=== PATIENT | male | born 1960 | race Caucasian/White ===

== ENCOUNTER 2022-11-15 10:35 | Inpatient (IN) ==
[2022-11-15] MEDS ORDERED: SODIUM CHLORIDE 0.9% 1,000 ML IV STA (11:07)
[2022-11-15 12:30] LABS: Bilirubin,Total 1.4 MG/DL (0.20-1.00); Calcium 9.5 MG/DL (8.5-10.1); Osmolality,Calculated 279.3 MOS/KG (273-304); Potassium 3.5 MMOL/L (3.5-5.1); Total Protein 7.9 G/DL (6.4-8.2)
[2022-11-15 12:37] LABS: Basophils % 0.6 % (0.0-0.8); Eosinophils # 0.2 10*3/uL (0.0-0.87); Eosinophils % 4.8 % (0.00-10.9); Hematocrit 37.4 VOL% (42.0-52.0); Hemoglobin 12.8 GM/DL (14.0-18.0); Immature Granulocytes % 0.2 %; Immature Granulocytes Absolute 0.01 #; Lymphocytes # 1.2 10*3/uL (1.4-4.0); Lymphocytes % 24.7 % (21.2-54.2); Mean Corpuscular HGB Conc 34.2 GM/DL (32-36); Mean Corpuscular Volume 98.2 FL (87-102); Mean Platelet Volume 10.4 FL (9.6-12.0); Monocytes # 0.5 10*3/uL (0.11-0.8); Monocytes % 10.8 % (1.7-12.7); Neutrophils % 58.9 % (38.7-73.9); Platelet Count 116 T/CUMM (130-400); Red Blood Count 3.81 MC/CUMM (3.8-5.5); Red Cell Distribution Width 13.2 % (9.3-17.3); White Blood Count 4.98 T/CUMM (4-12)
[2022-11-15 12:47] LABS: PT Patient Result 11.4 SECS (10.1-12.1)
[2022-11-15 13:58] LABS: Bilirubin,Urine Negative (Negative); Blood, Urine Negative (Negative); Glucose,Urine (UA) Negative (Negative); Ketones,Urine Negative (Negative); Nitrite,Urine Negative (Negative); Protein,Urine Negative (Negative); Urine Appearance Clear (Clear); Urine Color Yellow (Yellow); Urine Specific Gravity 1.015 (1.001-1.035)
[2022-11-15 14:01] LABS: Bacteria,Urine Occasional /HPF (Few); Mucus,Urine Occasional /LPF (Occasional); Squamous Epithelial Cell,Urine Occasional /HPF (0-10); Transitional Epi Cells,Urine Occasional /HPF (<1)
[2022-11-15 14:29] LABS: Barbiturates Screen,Urine Negative (Negative); Benzodiazepines Screen,Urine Negative (Negative); Cannabinoid Screen,Urine Negative (Negative); Opiate Screen,Urine Negative (Negative); Phencyclidine Screen,Urine Negative (Negative)
[2022-11-15] MEDS ORDERED: GLUCAGON 1 MG VIAL IM PRN (15:27)
[2022-11-15] MEDS ORDERED: hydrALAZINE 20 MG/1 ML VIAL IV PRN (15:27)
[2022-11-15] MEDS ORDERED: ONDANSETRON 4 MG/2 ML VIAL IV PRN (15:27)
[2022-11-15] MEDS ORDERED: DEXTROSE 10% 250 ML BAG IV PRN (15:34)
[2022-11-15] MEDS: LACTULOSE 20 GM/30 ML UDCUP PO SCH ×2 (16:10→21:35)
[2022-11-15] MEDS: LACTATED RINGERS 1,000 ML IV SCH (16:10)
[2022-11-15] MEDS: ENOXAPARIN 40 MG/0.4 ML SYRINGE SUBCUT SCH (16:11)
[2022-11-15] MEDS: INSULIN LISPRO 100 UNIT/ML SUBCUT SCH ×2 (17:20→20:42)
[2022-11-15] MEDS ORDERED: LACTULOSE 20 GM/30 ML UDCUP PO SCH (21:00)
[2022-11-16] MEDS ORDERED: HALOPERIDOL 5 MG/ML AMP IM ONE (01:42)
[2022-11-16] MEDS: LACTATED RINGERS 1,000 ML IV SCH ×2 (02:10→18:43)
[2022-11-16] MEDS: LACTULOSE 20 GM/30 ML UDCUP PO SCH ×4 (04:49→21:20)
[2022-11-16 06:16] LABS: Basophils # 0.1 10*3/uL (0.0-0.2); Eosinophils # 0.3 10*3/uL (0.0-0.87); Eosinophils % 5.4 % (0.00-10.9); Hematocrit 34.2 VOL% (42.0-52.0); Hemoglobin 11.7 GM/DL (14.0-18.0); Immature Granulocytes % 0.2 %; Immature Granulocytes Absolute 0.01 #; Lymphocytes # 1.5 10*3/uL (1.4-4.0); Lymphocytes % 29.3 % (21.2-54.2); Mean Corpuscular HGB Conc 34.2 GM/DL (32-36); Mean Corpuscular Volume 98.3 FL (87-102); Mean Platelet Volume 10.3 FL (9.6-12.0); Monocytes # 0.6 10*3/uL (0.11-0.8); Monocytes % 12.2 % (1.7-12.7); Neutrophils % 51.9 % (38.7-73.9); Platelet Count 111 T/CUMM (130-400); Red Blood Count 3.48 MC/CUMM (3.8-5.5); Red Cell Distribution Width 13.4 % (9.3-17.3); White Blood Count 4.98 T/CUMM (4-12)
[2022-11-16 06:50] LABS: Albumin 1.9 G/DL (3.4-5.0); Bilirubin,Total 1.3 MG/DL (0.20-1.00); Calcium 8.5 MG/DL (8.5-10.1); Osmolality,Calculated 284.7 MOS/KG (273-304); Potassium 2.9 MMOL/L (3.5-5.1); Total Protein 5.7 G/DL (6.4-8.2)
[2022-11-16] MEDS: INSULIN LISPRO 100 UNIT/ML SUBCUT SCH ×4 (07:27→21:20)
[2022-11-16 07:32] LABS: Hepatitis B Core IgM Quant 0.14 Index; Hepatitis B Surface Ag Quant < 0.10 Index; Hepatitis B Surface Ag Result Non-Reactive (NonReactive); Hepatitis C Virus Ab Quant > 11.00 Index; Hepatitis C Virus Ab Result Reactive (NonReactive)
[2022-11-16] MEDS ORDERED: POTASSIUM CHLORIDE 20 MEQ TABLET PO ONE (07:53)
[2022-11-16] MEDS ORDERED: ZIPRASIDONE 20 MG/1 ML VIAL IM ONE (08:17)
[2022-11-16] MEDS ORDERED: HALOPERIDOL 5 MG/ML AMP IM PRN (08:28)
[2022-11-16] MEDS ORDERED: POTASSIUM CHLORIDE 20 MEQ TABLET PO PRN (14:03)
[2022-11-16] MEDS ORDERED: MAGNESIUM SULF RIDER 2 GM/50 ML PREMIX IV PRN (14:03)
[2022-11-16] MEDS ORDERED: MAGNESIUM SULF RIDER 4 GM/100 ML PREMIX IV PRN (14:03)
[2022-11-16] MEDS: ENOXAPARIN 40 MG/0.4 ML SYRINGE SUBCUT SCH (16:16)
[2022-11-16] MEDS ORDERED: NICOTINE 21 MG/24 HR PATCH TRANSDERM PRN (21:55)
[2022-11-16] MEDS: ACETAMINOPHEN 325 MG TABLET PO PRN (23:05)
[2022-11-17] MEDS: LACTULOSE 20 GM/30 ML UDCUP PO SCH ×4 (03:10→21:00)
[2022-11-17] MEDS: LACTATED RINGERS 1,000 ML IV SCH (05:00)
[2022-11-17 06:28] LABS: Albumin 2.4 G/DL (3.4-5.0); Bilirubin,Total 0.9 MG/DL (0.20-1.00); Calcium 8.3 MG/DL (8.5-10.1); Osmolality,Calculated 288.7 MOS/KG (273-304); Potassium 3.1 MMOL/L (3.5-5.1); Total Protein 5.8 G/DL (6.4-8.2)
[2022-11-17] MEDS: INSULIN LISPRO 100 UNIT/ML SUBCUT SCH ×4 (07:25→21:03)
[2022-11-17] MEDS ORDERED: POTASSIUM CHLORIDE 20 MEQ TABLET PO ONE (08:00)
[2022-11-17] MEDS: POTASSIUM CHLORIDE 20 MEQ TABLET PO SCH ×2 (09:49→21:00)
[2022-11-17] MEDS: ENOXAPARIN 40 MG/0.4 ML SYRINGE SUBCUT SCH (16:00)
[2022-11-17] MEDS: LITHIUM 300 MG CAPSULE PO SCH (20:59)
[2022-11-17] MEDS: DIVALPROEX 500 MG TABLET PO SCH (20:59)
[2022-11-18] MEDS: LACTULOSE 20 GM/30 ML UDCUP PO SCH ×5 (01:53→21:15)
[2022-11-18] MEDS: INSULIN LISPRO 100 UNIT/ML SUBCUT SCH ×4 (07:14→21:15)
[2022-11-18] MEDS: LITHIUM 300 MG CAPSULE PO SCH ×2 (09:32→20:25)
[2022-11-18] MEDS: POTASSIUM CHLORIDE 20 MEQ TABLET PO SCH ×2 (09:32→20:25)
[2022-11-18] MEDS: ACETAMINOPHEN 325 MG TABLET PO PRN (10:23)
[2022-11-18] MEDS: ENOXAPARIN 40 MG/0.4 ML SYRINGE SUBCUT SCH (15:28)
[2022-11-18] MEDS: DIVALPROEX 500 MG TABLET PO SCH (20:25)
[2022-11-19] MEDS: LACTULOSE 20 GM/30 ML UDCUP PO SCH ×2 (05:03→10:36)
[2022-11-19] MEDS: INSULIN LISPRO 100 UNIT/ML SUBCUT SCH ×2 (07:39→12:18)
[2022-11-19 08:22] VITALS: BP 146/86
[2022-11-19] MEDS: POTASSIUM CHLORIDE 20 MEQ TABLET PO SCH (10:36)
[2022-11-19] MEDS: LITHIUM 300 MG CAPSULE PO SCH (10:36)
== END 2022-11-19 14:17 | disposition left against medical advice (07) | DRG 885 ==
LOC: N.EDINP 10:35 → N.ED 10:35 → SUATTDRO 15:25 → N.3E 16:16 → SUATTDRO 11-17 09:53
PROVIDERS: ADMIT Internal Medicine; ATTEND Internal Medicine